=== PATIENT | male | born 1955 | race African-American/Black ===

== ENCOUNTER → 2019-10-27 | Outpatient (CLI) | payer MEDICARE ==
--- NOTE | 2019-10-27 11:29 | US ---
EXAMINATION TYPE: US liver DATE OF EXAM: 10/27/2019 COMPARISON: NONE CLINICAL HISTORY: R94.5 ABN LIVER FUNCTIONS. EXAM MEASUREMENTS: Liver Length: 14.9 cm Gallbladder Wall: 0.2 cm CBD: 0.3 cm Right Kidney: 12.3 x 5.7 x 5.3 cm Pancreas: Partially Obscured by bowel gas Liver: Increased attenuation, decreased visualization of vessels suggestive of fatty infiltrate. Thi s limits evaluation for hepatic mass. Probable focal fatty sparing near gallbladder fossa measuring 3 .4 cm Gallbladder: No stones seen Evidence for sonographic Simmons's sign: No CBD: wnl Right Kidney: Upper pole cyst = 6.5 x 6.6 x 6.5 cm, Mid pole cyst = 1.9 x 2.0 x 1.6 cm IMPRESSION: 1. Sonographic findings most commonly related to hepatic steatosis. Overall appearing moderate in deg ree. Correlate with liver function test results. Area of probable focal fatty sparing is seen near th e gallbladder fossa. 2. Simple right renal cysts measuring up to 6.6 cm.
== END | disposition home or self-care (01) ==
LOC: RADUSWWP 08:06
PROVIDERS: ATTEND Internal Medicine
DX: N28.1 Cyst of kidney, acquired (principal)
CPT/HCPCS: 76705

== ENCOUNTER → 2019-12-08 | Outpatient (CLI) | payer MEDICARE ==
--- NOTE | 2019-12-09 08:02 | US ---
EXAMINATION TYPE: US kidneys/renal and bladder DATE OF EXAM: 12/08/2019 COMPARISON: NONE CLINICAL HISTORY: R94.4 Abnormal renal fxn test. abn labs, no symptoms EXAM MEASUREMENTS: Right Kidney: 11.2 x 3.5 x 4.6 cm Left Kidney: 7.1 x 2.9 x 3.5 cm Right Kidney: 6.4cm lateral cyst seen Left Kidney: small in size, difficult to image Bladder: 0.7mm wall, incomplete distention of the urinary bladder There is no evidence for hydronephrosis at this point in time. No nephrolithiasis is seen. No jose m s are identified. The urinary bladder is anechoic. Bilateral ureteral jets are seen. IMPRESSION: 1. Mild left renal atrophy with asymmetric size of the left kidney in comparison to the right. 2. Benign-appearing 6.4 cm right renal cyst. 3. There is questionable urinary bladder wall thickening that could relate to incomplete distention. Correlation with urinalysis is recommended.
== END | disposition home or self-care (01) ==
LOC: RADUSWWP 15:27
PROVIDERS: ATTEND Internal Medicine
DX: N28.1 Cyst of kidney, acquired (principal); N26.1 Atrophy of kidney (terminal); N32.89 Other specified disorders of bladder
CPT/HCPCS: 76770

== ENCOUNTER → 2020-05-22 | Outpatient (CLI) | payer MEDICARE ==
--- NOTE | 2020-05-22 16:51 | US ---
EXAMINATION TYPE: US venous doppler duplex LE DATE OF EXAM: 05/22/2020 10:12 AM LOWER EXTREMITY VENOUS INSUFFICIENCY CLINICAL HISTORY: I87.313 Chronic venous hypertension w/ulcer of bilat. [facility] patient wit h healed lower extremity ulcers. Coarse and flaking skin with hyperpigmentation in lower extremities. SIDE PERFORMED: bilateral 1) Color flow is present and patency is documented in the following vessels. No DVT or SVT is noted . Common Femoral Vein Deep Femoral Vein Femoral Vein Popliteal Vein Proximal Calf Veins Greater Saph Vein (GSV) Upper Small Saph Vein 2) There is venous reflux noted at the following venous levels: Right Greater Saphenous Vein at ank le;(delayed valve closure Right CFV); one of two upper right calf veins; Left GSV above knee and at a nkle. 3) Incompetent perforators are noted at these levels: 0 IMPRESSION: 1. Venous reflux present within the right greater saphenous vein and right common femoral vein as wel l as right calf proximal veins and left greater saphenous veins.
--- NOTE | 2020-05-23 12:36 | P.ARTDOP ---
Arterial Doppler LOWER EXTREMITY ARTERIAL DOPPLER: DATE OF SERVICE: 05/22/2010 Reason for study: History of bilateral lower extremity ulcers. Doppler waveforms: Multiphasic bilaterally throughout. Pulse volume recording: []. Pressure gradients: None. Ankle-brachial indices: Greater than 1 bilaterally. Toe brachial indices: 1.2 on the right, 0.84 on the left Impression: Normal study.
== END | disposition home or self-care (01) ==
LOC: RADUSWWP 09:26
PROVIDERS: ATTEND Family Medicine
DX: I87.2 Venous insufficiency (chronic) (peripheral) (principal); I87.323 Chronic venous hypertension (idiopathic) with inflammation of bilateral lower extremity
CPT/HCPCS: 93922; 93970

== ENCOUNTER → 2020-05-22 | Outpatient (CLI) | payer MEDICARE ==
--- NOTE | 2020-05-22 14:27 | XR ---
Lumbar spine HISTORY: Pain 3 views of the lumbar spine Lumbar vertebral bodies show preserved height and alignment. There is loss of disc height especially at L4-5, L5-S1 with associated vacuum phenomenon. There is multilevel spondylosis. Sclerosis present in the posterior elements. There is mild dextroscoliosis centered at the mid lumbar spine. IMPRESSION: Degenerative disc disease and facet arthropathy.
--- NOTE | 2020-05-22 14:28 | XR ---
Cervical spine HISTORY: Pain 3 views of the cervical spine Cervical vertebral bodies show preserved height and alignment. There is loss of normal cervical lordo sis. Is loss of disc height at C3-4, at C5-6 there is apparent ankylosis, loss of disc height at C6-7 with associated vacuum phenomenon. Prevertebral soft tissues are normal. Odontoid view is limited. B one mineralization is maintained. IMPRESSION: Degenerative disc disease.
== END | disposition home or self-care (01) ==
LOC: RADXRWHC 10:51
PROVIDERS: ATTEND Chiropractor
DX: M51.16 Intervertebral disc disorders with radiculopathy, lumbar region (principal); M99.03 Segmental and somatic dysfunction of lumbar region; M99.01 Segmental and somatic dysfunction of cervical region; M54.2 Cervicalgia; M46.96 Unspecified inflammatory spondylopathy, lumbar region; M50.30 Other cervical disc degeneration, unspecified cervical region
CPT/HCPCS: 72040; 72100

== ENCOUNTER → 2021-10-09 | Outpatient (CLI) | payer MEDICARE ==
--- NOTE | 2021-10-09 20:59 | US ---
EXAMINATION TYPE: US kidneys/renal and bladder DATE OF EXAM: 10/09/2021 COMPARISON: CLINICAL HISTORY: N17.9 ACUTE RENAL FAILURE. Abnormal labs. No pain. EXAM MEASUREMENTS: Right Kidney: 10.6 x 4.7 x 4.7 cm Left Kidney: 12.4 x 4.1 x 5.2 cm Right Kidney: upper pole cystic lesion = 7.0 x 7.3 x 7.1 cm. Lower pole septated cystic lesion = 2.6 x 2.6 x 2.4 cm. Left Kidney: upper pole prominent column of Jovanny vs other etiology Bladder: anechoic, wall = 4.2 mm. Left jet seen IMPRESSION: 1. Right renal simple cyst. 2. Complex cyst with septation in the mid to inferior pole right kidney. Follow-up is recommended
== END | disposition home or self-care (01) ==
LOC: RADUSWWP 09:48
PROVIDERS: ATTEND Internal Medicine
DX: N28.1 Cyst of kidney, acquired (principal); N17.9 Acute kidney failure, unspecified
CPT/HCPCS: 76770

== ENCOUNTER → 2024-04-14 | Outpatient (CLI) | payer MEDICARE ==
--- NOTE | 2024-04-15 09:09 | US ---
EXAMINATION TYPE: US kidneys/renal and bladder DATE OF EXAM: 04/14/2024 COMPARISON: 10/09/2021 CLINICAL INDICATION: Male, 68 years old with history of R79.9 ABNORMAL FINDING OF BLOOD CHEMISTRY, UN SPECI; ABN labs EXAM MEASUREMENTS: Right Kidney: 13.8 x 7.9 x 6.1 cm Left Kidney: 11.9 x 5.0 x 3.4 cm Right Kidney: Anechoic area upper pole 7.6 x 7.0 x 9.2 cm. Left Kidney: Column of Jovanny visualized. Bladder: Anechoic Bilateral Jets seen: no There is no evidence for hydronephrosis at this point in time. No nephrolithiasis is seen. No jose m s are identified. The urinary bladder is anechoic. Bilateral ureteral jets are seen. Impression: 1. Enlarging 9 cm simple cortical cyst of the right kidney. Previously measured 7 cm in greatest dime nsion 2. Previously identified smaller septated cyst in the right kidney not identified on the current stud y. 3. No solid renal mass, renal calcification or hydronephrosis.
== END | disposition home or self-care (01) ==
LOC: RADUSWWP 13:42
PROVIDERS: ATTEND Internal Medicine
DX: N28.1 Cyst of kidney, acquired (principal); R79.9 Abnormal finding of blood chemistry, unspecified
CPT/HCPCS: 76770

== ENCOUNTER → 2025-04-26 | Outpatient (CLI) | payer MEDICARE ==
--- NOTE | 2025-04-26 14:25 | US ---
EXAMINATION TYPE: US thyroid st tissue head/neck DATE OF EXAM: 04/26/2025 COMPARISON: NONE CLINICAL INDICATION: Male, 69 years old with history of R94.6 ABNORMAL THYROID LABS; TECHNIQUE: Grayscale and color Doppler imaging of the thyroid gland. FINDINGS: GLAND SIZE: Right Lobe: 5.0 x 2.1 x 2.5 cm Overall Parenchyma: heterogeneous Left Lobe: 6.7 x 3.7 x 3.6 cm Overall Parenchyma: heterogeneous Isthmus Thickness: 0.3 cm NODULES RIGHT: # of nodules measured on right: 1 1. 2.1 X 1.7 x 2.0 cm, mid, solid or almost completely solid, hypoechoic nodule, which is wider alta n tall, with ill-defined margins, without echogenic foci. TR 4 Prior size: no previous LEFT: # of nodules measured on left: 1 1. 4.2 X 2.9 x 3.0 cm, lower mid, solid or almost completely solid, isoechoic nodule, which is tall er than wide, with ill-defined margins, without echogenic foci. TR 3 Prior size: no previous ISTHMUS: # of nodules measured in the isthmus: 0 Bilateral neck scanned, no evidence of lymphadenopathy. IMPRESSION: Moderately suspicious nodules bilateral thyroid lobes. Fine-needle aspiration recommended bilaterally . Highest TI-RADS level nodule reported: 2017 ACR TI-RADS LEVEL: TI-RADS 4 - Moderately Suspicious: Follow if > 1 cm, FNA if > 1.5 cm TI-RADS assessment score and recommendation for follow-up based on appropriate scoring and treatment protocols. TR1 Benign No FNA TR2 Not suspicious No FNA TR3: If nodule size is ? 2.5 cm, FNA is recommended. If nodule size is ? 1.5 cm, follow-up imaging at 1, 3, and 5 years is recommended. TR4: If nodule size is ? 1.5 cm, FNA is recommended. If nodule size is ? 1.0 cm, follow-up imaging at 1, 2, 3, and 5 years is recommended. TR5: If nodule size is ? 1.0 cm, FNA is recommended. If nodule size is ? 0.5 cm, annual follow-up for up to 5 years is recommended. TR 1 thyroid nodules have a 0.3 % risk of malignancy. TR 2 thyroid nodules have a 1.5 % risk of malignancy. TR 3 thyroid nodules have a 4.8 % risk of malignancy. TR 4 thyroid nodules have a 9.1 % risk of malignancy. TR 5 thyroid nodules have a 35 % risk of malignancy. [email or web address] [facility], , 04/26/2025 2:22 PM
== END | disposition home or self-care (01) ==
LOC: RADUSWWP 13:49
PROVIDERS: ATTEND Internal Medicine
DX: R94.6 Abnormal results of thyroid function studies (principal)
CPT/HCPCS: 76536

== ENCOUNTER → 2025-06-09 | Outpatient (CLI) | payer MEDICARE ==
--- NOTE | 2025-06-09 15:14 | US ---
EXAMINATION TYPE: US kidneys/renal and bladder DATE OF EXAM: 06/09/2025 COMPARISON: Renal ultrasound 04/14/2024, 10/09/2021, 12/08/2019 CLINICAL INDICATION: Male, 70 years old with history of N18.32 STAGE 3 CKD; CKD stage 3B TECHNIQUE: Grayscale imaging of the bilateral kidneys and urinary bladder: FINDINGS: EXAM MEASUREMENTS: Right Kidney: 12.8 x 5.6 x 4.7 cm Left Kidney: 12.6 x 4.4 x 5.1 cm Right Kidney: Measures slightly large. *Anechoic area seen upper pole: 8.1 x 8.3 x 7.3 cm. *Anechoic area seen lower pole: 4.2 x 3.6 x 4.2 cm. Left Kidney: Isoechoic area of probable column of Jovanny seen versus other: 3.6 x 3.3 x 2.3 cm. Bladder: wnl Bilateral Jets seen: Yes No hydronephrosis. Cortical medullary differentiation is maintained bilaterally. There are 2 simple c ysts identified within the right kidney. Column of Jovanny identified within the left mid kidney. The urinary bladder is unremarkable and anechoic. Bilateral ureteral jets identified. IMPRESSION: 1. No evidence for obstructive uropathy. 2. Simple right renal cysts. [facility], , 06/09/2025 3:12 PM
== END | disposition home or self-care (01) ==
LOC: RADUSWWP 14:13
PROVIDERS: ATTEND Internal Medicine
DX: N28.1 Cyst of kidney, acquired (principal); N18.32 Chronic kidney disease, stage 3b
CPT/HCPCS: 76770